=== PATIENT | male | born 1995 | race Hispanic/Latino ===

== ENCOUNTER 2018-07-18 10:42 | Emergency (ER) | payer SELFPAY ==
[2018-07-18] MEDS ORDERED: TETANUS/DIPHTHERIA TOXOID [ADULT] 0.5 ML VIAL IM ONE (11:12)
[2018-07-18] MEDS ORDERED: HYDROCODONE/ACETAMINOPHEN 7.5/325 MG TAB ONE (12:04)
== END 2018-07-18 15:57 | disposition home or self-care (01) ==
LOC: EDH 10:42
DX: T22.212A Burn of second degree of left forearm, initial encounter (principal); T22.211A Burn of second degree of right forearm, initial encounter; T31.0 Burns involving less than 10% of body surface; X17.XXXA Contact with hot engines, machinery and tools, initial encounter; Y93.89 Activity, other specified; Y92.89 Other specified places as the place of occurrence of the external cause; Y99.8 Other external cause status
CPT/HCPCS: 16020; 73090; 73100; 90471; 90714